=== PATIENT | female | born 1985 | race Caucasian/White ===

== ENCOUNTER 2016-12-24 08:19 | Day surgery (SDC) | payer OTHER ==
[2016-12-17 10:10] VITALS: BMI 21.4
[2016-12-24] MEDS ORDERED: PROPOFOL 20 ML ONE ×2 (10:20)
[2016-12-24] MEDS ORDERED: MIDAZOLAM HCL 2 MG/2 ML SINGLE DOSE VIAL ONE (10:20)
[2016-12-24] MEDS ORDERED: ROPIVACAINE HCL 0.5% 30ML VIAL ONE (10:22)
[2016-12-24] MEDS ORDERED: LIDOCAINE HCL/PF 2% SDV 5ML VIAL ONE (10:51)
[2016-12-24] MEDS ORDERED: DEXAMETHASONE SOD PHOSPHATE 4 MG/1 ML VIAL ONE (10:52)
[2016-12-24] MEDS ORDERED: ONDANSETRON 4 MG/2 ML VIAL ONE (10:52)
[2016-12-24] MEDS ORDERED: KETOROLAC TROMETHAMINE 30 MG/1 ML VIAL ONE (10:52)
[2016-12-24] MEDS ORDERED: ceFAZolin SODIUM 1 GM VIAL ONE (10:55)
[2016-12-24] MEDS ORDERED: LACTATED RINGERS SOLUTION 1,000 ML IV SCH (12:15)
[2016-12-24 12:41] VITALS: PULSE 71
[2016-12-24 12:54] VITALS: BP 110/64; TEMP 98
[2016-12-24] MEDS ORDERED: ONDANSETRON 4 MG/2 ML VIAL IVPUSH PRN (12:57)
[2016-12-24] MEDS ORDERED: oxyCODONE HCL 5 MG TABLET PO PRN (12:57)
--- NOTE | 2016-12-24 21:02 | OP ---
DATE OF OPERATION: 12/24/2016 PREOPERATIVE DIAGNOSIS: Left triangular fibrocartilaginous complex tear. POSTOPERATIVE DIAGNOSIS: Left triangular fibrocartilaginous complex tear. OPERATIVE PROCEDURE: Left wrist operative arthroscopy with debridement of triangular fibrocartilaginous complex. SURGEON: Yobany Brooks MD ANESTHESIA: General. COMPLICATIONS: None. ESTIMATED BLOOD LOSS: Minimal. INDICATIONS FOR PROCEDURE: The patient is a 31-year-old female with the above finding, indicated for operative treatment. Risks, benefits, alternatives were discussed with her at length and proper informed consent was obtained. PROCEDURE: After proper identification of patient and correct operative site, patient brought to operating room, placed supine on the table, prominences well padded. General anesthesia was provided by the anesthesiologist, and intravenous antibiotics were given. Time-out procedure was performed. Left upper extremity was prepped and draped in usual sterile fashion. Well-padded tourniquet was placed over the sterile prep. Esmarch bandage used to exsanguinate left upper extremity, tourniquet was inflated to 250 mmHg. The left upper extremity was placed into the wrist traction tower with 10 pounds of in-line traction and all points of contact well padded. Arthroscopy was performed through dorsal 3-4 and 4-5 portals. Incisions were made in the skin only with blunt dissection of the joint capsule. A 2.7 mm gravity in-flow arthroscope was used throughout the procedure. A 2.0-mm shaver was used throughout the procedure. The radiocarpal joint was observed 1st and found to be free of articular defects. The scapholunate ligament and lunotriquetral ligaments were intact. Volar radiocarpal ligaments were intact. No arthrosis was noted. Mild dorsal fraying of the capsule was noted dorsally and ulnarly and this was debrided with mechanical shaver. Mild synovitis was noted in this area as well. A full-thickness central tear of the TFCC was also noted. However, the dorsal and volar radioulnar ligaments were intact and stable. Trampoline effect was in place and there was no instability of the distal radioulnar joint. The TFCC tear was debrided down to stable healthy edges with a shaver. Arthroscope was then removed from the wrist and the wrist was irrigated with saline and injected with ropivacaine anesthetic. The incisions were repaired with 5-0 nylon suture. Sterile dressings were applied. Patient was reversed from anesthesia and brought to the recovery room in stable condition. She tolerated the procedure well. Randee LANGE/[id number]
== END 2016-12-24 13:06 | disposition home or self-care (01) ==
LOC: FASU 08:19
PROVIDERS: ATTEND Orthopaedic Surgery Hand Surgery
PROC: 0MQ64ZZ Repair Left Wrist Bursa and Ligament, Percutaneous Endoscopic Approach (ICD-10-PCS; principal; 2016-12-24 10:00)
DX: S63.592A Other specified sprain of left wrist, initial encounter (principal); X58.XXXA Exposure to other specified factors, initial encounter; Y93.9 Activity, unspecified; Y92.9 Unspecified place or not applicable
CPT/HCPCS: 84703; 94760

== ENCOUNTER 2019-02-27 19:10 | Emergency (ER) | payer OTHER ==
[2019-02-27 19:25] VITALS: BP 108/60; PULSE 80; TEMP 98.5; BMI 21.8
[2019-02-27] MEDS ORDERED: SODIUM CHLORIDE 1,000 ML IV STA (19:37)
[2019-02-27] MEDS ORDERED: FAMOTIDINE 20 MG/50 ML IVPB 20 MG/50 ML MG IVPB ONE ×2 (19:37→20:03)
[2019-02-27] MEDS ORDERED: ACETAMINOPHEN 1000 MG/100 ML VIAL (NON FORMULARY) IVPB ONE (19:37)
[2019-02-27] MEDS ORDERED: ONDANSETRON 4 MG/2 ML VIAL IVPUSH ONE (19:37)
--- NOTE | 2019-02-27 19:45 | PDOC ---
Documentation entered by Venessa Edwards SCRIBE, acting as scribe for Fiorella Khan MD. Fiorella Khan MD: This documentation has been prepared by the steveeJerry Aiswarya, SCRIBE, under my direction and personally reviewed by me in its entirety. I confirm that the documentation accurately reflects all work, treatment, procedures, and medical decision making performed by me. History of Present Illness - General Chief Complaint: Nausea/Vomiting Stated Complaint: VOMITING Time Seen by Provider: 02/27/19 19:17 History Source: Patient, Family Exam Limitations: No Limitations - History of Present Illness Initial Comments: 02/27/19 19:43 Patient is a 30 year old female with a PMHx of seizures and migraines who presents with nausea and vomiting x 1 day. The patient states she had a green party celebrating [facility] yesterday where her friends brought homemade food and thinks she may have food poisoning (unsure if anyone else got sick). While at the green party, she also drank some Tequila, and she generally does not drink alcohol. Since then she has experienced multiple episodes of NBNB emesis, difficulty tolerating PO intake, though she has been taking sips of water. Patient endorses associated symptoms of generalized weakness, dizziness and mild headache 2/2 vomiting. She tried taking motrin and pepto bismol earlier today, without relief. Patient states she went to Urgent Care prior to coming to the ER where they gave her Zofran 4mg, temporary relief noted and advised her to go to the ED if she continues to feel dehydrated. Denies fever, chills, chest pain, SOB, palpitation, dizziness, weakness, diarrhea, bladder and bowel problems, leg swelling. No travel. Denies , LMP ~2 weeks ago and usually regular. PMHx: Seizures and Migraines PSHx: None Medications: Keppra 750mg BID, Meloxicam 15mg, Butalbital/AcetaminopheN/ Caffeine Allergies: NKDA Social History: occasional alcohol use, no drug use, no smoking PCP: Dr. Franci Houser Neurologist: Dr. Younger Review of systems Constitutional: no fevers or chills. +generalized weakness, sweats. HEENT: +headache or dizziness. No congestion. No visual/hearing disturbances. CVS: no cp or syncope. Resp: no sob. No cough. Gastrointestinal: + nausea or vomiting. No abdominal pain, bloody stools or diarrhea/constipation. Genitourinary: no urinary sx, hematuria. No frequency or urgency. MUSCULOSKELETAL: No joint pain and swelling. No neck or back pain. SKIN: no redness or skin changes, no discharge, no rash. No wounds. Hematologic: no easy bruising/bleeding. NEUROLOGIC: +headache, dizziness, No LOC or altered mental status. No focal weakness, numbness or tingling. Psych: no anxiety or depression Allergic/Immunologic: no allergies All other systems reviewed and negative, or as documented in HPI. Physical exam General: Well appearing, awake and alert, NAD. HEENT: NCAT, PERRL, EOMI, clear conjunctiva, anicteric, dry mucous membranes, clear oropharynx, no oral lesions.. Neck: neck supple, FROM Resp: CTAB, normal and even respirations, no respiratory distress CVS: RRR, no murmurs, 2+ peripheral pulses throughout, no peripheral edema Abdomen: +periumbilical and epigastric tenderness on palpation. No rebounding or guarding. No CVA tenderness. Back: nontender, normal inspection and ROM MSK: no edema, NARVAEZ x4, ROM intact. No clubbing or cyanosis. normal bulk and tone. Neuro: alert, oriented appropriately Skin: warm and well perfused, cap refill <2 sec, normal color 02/27/19 20:18 Past History - Past Medical History Allergies/Adverse Reactions: Allergies Allergy/AdvReac Type Severity Reaction Status Date / Time No Known Allergies Allergy Verified 02/27/19 19:19 Home Medications: Ambulatory Orders Rizatriptan Benzoate [Maxalt Acidity Tester] 10 mg PO BID PRN 02/27/19 levETIRAcetam [Levetiracetam ER] 2,000 mg PO HS 02/27/19 Anemia: No Asthma: No Cancer: No Cardiac Disorders: No CVA: No COPD: No CHF: No Dementia: No Diabetes: No GI Disorders: No Disorders: No HTN: No Hypercholesterolemia: No Liver Disease: No Seizures: Yes (SEP 2016/COUPLE YRLY SINCE 14Y/O) Thyroid Disease: No - Immunization History Immunization Up to Date: Yes - Suicide/Smoking/Psychosocial Hx Smoking History: Former smoker Have you smoked in the past 12 months: No If you are a former smoker, when did you quit?: 2016 Hx Alcohol Use: Yes (RARE) Drug/Substance Use Hx: No Substance Use Type: Alcohol Hx Substance Use Treatment: No *Physical Exam - Vital Signs Last Vital Signs Temp Pulse Resp BP Pulse Ox 98.5 F 80 16 108/60 100 02/27/19 19:11 02/27/19 19:11 02/27/19 19:11 02/27/19 19:11 02/27/19 19:11 ED Treatment Course - LABORATORY CBC & Chemistry Diagram: 02/27/19 19:40 02/27/19 19:40 Medical Decision Making - Medical Decision Making 02/27/19 19:43 hpi as documenented VS reviewed wnl DDx abdominal pain: Renal colic, biliary colic, metabolic/electrolyte derangements. GERD, PUD, esophageal spasm, alcohol side effect, pancreatitis, hepatitis, constipation, colitis, gastroenteritis, cholecystitis, . ED course: - well appearing, nontoxic. abdomen soft, mild ttp to epigastrium and periumbilical region, but otherwise not symptomatic. received zofran earlier. will given IVF, analgesia and zofran, reassess - labs and lytes, LFTs and lipase wnl. - ua neg,+ketones likely from dehydration/vomiting - given hydration; neg preg test - po challenged, tolerated, feels much improved, reassessed abdomen benign - rx zofran already at pharmacy, prn for n/v. Pt to be discharged in stable condition. Patient and family made aware of impression and plan, return precautions discussed (including but not limited to worsening pain or symptoms), fevers, or signs of infection, chest pain, respiratory distress, inability to tolerate oral intake, dehydration, syncope, or neurologic changes). Follow up with PMD as recommended, follow up information provided, take medications as instructed for duration of time. continue with supportive care, avoid triggers and precipitants. All questions answered to patient's satisfaction and expressed understanding and comfort with this. Patient does not suffer from an acute life-threatening medical condition at this time she is safe for outpatient follow-up. 02/27/19 19:44 02/27/19 21:27 *DC/Admit/Observation/Transfer Diagnosis at time of Disposition: Nausea & vomiting - Discharge Dispostion Disposition: HOME Condition at time of disposition: Good Decision to Admit order: No - Referrals Referrals: Michelle Sanders MD [Primary Care Provider] - - Patient Instructions Printed Discharge Instructions: DI for Nausea -- Adult, DI for Vomiting -- Adult Additional Instructions: 1) Please follow-up with your primary care doctor in the next 1-2 days. Please call tomorrow for for any urgent issues. 2) You were given a copy of the tests performed today. Please bring the results with you and review them with your primary care doctor. Your laboratory / results were normal 3) If you have any worsening of symptoms or any other concerns please return to the ED immediately. Return if worsening symptoms including fevers, headache, vomiting, visual or hearing disturbances, abdominal pain, chest pain, shortness of breath, syncope, dehydration, inability to take things by mouth/vomiting, altered mental status, or worsening concerning symptoms. 4) Please continue taking your home medications as directed. your medications on discharge include Zofran 4mg tablet three times a day as needed for nausea/ vomiting . do not drink alcohol with your medications. Stay well hydrated and rest adequately. Make an appointment. If you cannot follow-up with your primary care doctor please return to the ED - Post Discharge Activity Forms/Work/School Notes: Back to Work
[2019-02-27] MEDS ORDERED: ONDANSETRON 4 MG/2 ML VIAL ONE (19:52)
[2019-02-27] MEDS ORDERED: ACETAMINOPHEN INJECTION 100 ML IVPB ONE (19:52)
[2019-02-27 20:02] LABS: BASO % 0.6 % (0-2.0); EOS % 0.3 % (0-4.5); HEMATOCRIT 40.5 % (32.4-45.2); MCH 31.8 pg (25.7-33.7); MCHC 34.6 g/dl (32.0-36.0); MEAN CELL VOLUME 91.9 fl (80-96); MEAN PLT VOLUME 7.9 fl (7.5-11.1); NEUT % 82.1 % (42.8-82.8); PLATELET COUNT 274 K/MM3 (134-434); RDW 12.4 % (11.6-15.6); WHITE BLOOD COUNT 10.7 K/mm3 (4.0-10.8)
[2019-02-27 20:20] LABS: ALBUMIN 4.3 g/dl (3.4-5.0); ALK PHOS 60 U/L (45-117); ANION GAP 12 MMOL/L (8-16); BILIRUBIN,TOTAL 1.3 mg/dl (0.2-1); BLOOD UREA NITROGEN 13 mg/dl (7-18); CALCIUM 9.5 mg/dl (8.5-10); CHLORIDE 105 mmol/L (98-107); CO2 24 mmol/L (21-32); CREATININE 0.5 mg/dl (0.55-1.3); GLUCOSE,RANDOM 90 mg/dl (74-106); POTASSIUM 4.1 mmol/L (3.5-5.1); SGOT/AST 21 U/L (15-37); SGPT/ALT 23 U/L (13-61); SODIUM 141 mmol/L (136-145); TOT PROT 7.9 g/dl (6.4-8.2)
[2019-02-27 21:06] LABS: LIPASE 112 U/L (73-393)
== END 2019-02-27 21:34 | disposition home or self-care (01) ==
LOC: FER 19:10
PROC: 3E033NZ Introduction of Analgesics, Hypnotics, Sedatives into Peripheral Vein, Percutaneous Approach (ICD-10-PCS; principal; 2019-02-27)
PROC: 3E033GC Introduction of Other Therapeutic Substance into Peripheral Vein, Percutaneous Approach (ICD-10-PCS; 2019-02-27)
PROC: 3E0337Z Introduction of Electrolytic and Water Balance Substance into Peripheral Vein, Percutaneous Approach (ICD-10-PCS; 2019-02-27)
DX: R11.2 Nausea with vomiting, unspecified (principal); G40.909 Epilepsy, unspecified, not intractable, without status epilepticus
CPT/HCPCS: 36415; 80053; 81003; 83690; 84703; 85025; 99283-25; J0131; J7030

== ENCOUNTER 2021-03-04 17:20 | Emergency (ER) | payer OTHER ==
[2021-03-04 17:25] VITALS: BP 113/62; PULSE 75; TEMP 98.7; BMI 23.3
[2021-03-04] MEDS ORDERED: LIDOCAINE 5% TOPICAL PATCH TP ONE (18:01)
[2021-03-04] MEDS ORDERED: LIDOCAINE 5% TOPICAL PATCH ONE (18:13)
[2021-03-04] MEDS ORDERED: LIDOCAINE PATCH REMOVAL MC SCH (22:00)
== END 2021-03-04 18:55 | disposition home or self-care (01) ==
LOC: FER 17:20
DX: S46.912A Strain of unspecified muscle, fascia and tendon at shoulder and upper arm level, left arm, initial encounter (principal)
CPT/HCPCS: 73030-TC-LT-FY; 99284-25

== ENCOUNTER 2021-04-16 11:00 | Emergency (ER) | payer OTHER ==
[2021-04-16 11:07] VITALS: BP 113/57; PULSE 76; TEMP 98.6; BMI 23.3
[2021-04-16] MEDS ORDERED: ACETAMINOPHEN 325 MG TABLET (FP) PO ONE (11:44)
[2021-04-16] MEDS ORDERED: KETOROLAC TROMETHAMINE 60 MG/2 ML VIAL IM ONE (11:44)
[2021-04-16] MEDS ORDERED: diazePAM 5 MG TABLET PO ONE (11:45)
[2021-04-16] MEDS ORDERED: LIDOCAINE 5% TOPICAL PATCH TP ONE (11:45)
[2021-04-16] MEDS ORDERED: diazePAM 5 MG TABLET ONE (11:50)
[2021-04-16] MEDS ORDERED: KETOROLAC TROMETHAMINE 30 MG/1 ML VIAL ONE (11:50)
[2021-04-16] MEDS ORDERED: LIDOCAINE 5% TOPICAL PATCH ONE (11:50)
[2021-04-16] MEDS ORDERED: ACETAMINOPHEN 500 MG TABLET (FP) ONE (11:50)
[2021-04-16] MEDS ORDERED: DEXAMETHASONE LIQUID 0.5 MG/5 ML PO ONE (13:53)
[2021-04-16] MEDS ORDERED: DEXAMETHASONE SOD PHOSPHATE 10 MG/1 ML VIAL ONE (13:55)
== END 2021-04-16 14:40 | disposition home or self-care (01) ==
LOC: JERFT 11:00 → JER 11:00 → JERFT 14:40
PROC: 3E0233Z Introduction of Anti-inflammatory into Muscle, Percutaneous Approach (ICD-10-PCS; principal; 2021-04-16)
DX: M54.5 Low back pain (principal)
CPT/HCPCS: 72100-TC-FY; 99284-25